=== PATIENT | female | born 2005 | race Caucasian/White ===

== ENCOUNTER 2025-07-21 08:34 | Outpatient (CLI) | payer OTHER ==
[2025-07-21 09:26] LABS: URINE APPEARANCE Clear; URINE BILIRRUBIN Negative (NEGATIVE); URINE BLOOD Negative; URINE COLOR Yellow; URINE GLUCOSE Negative (NEGATIVE); URINE KETONE Negative (NEGATIVE); URINE LEUKOCYTE Negative; URINE NITRATE Negative; URINE PROTEIN Negative (NEGATIVE); URINE UROBILINOGEN 0.2 E.U./dl
[2025-07-21 09:28] LABS: BASO % 0.3 % (0.1-1.2); EOS # 0.19 (0.04-0.54); EOS % 2.8 % (0.7-7.0); LYMPH # 2.66 (1.18-3.74); LYMPH % 39.3 % (19.3-53.1); MEAN PLATELET VOLUME 12.10 fl (9.4-12.4); MONO # 0.59 (0.24-0.82); MONO % 8.7 % (4.7-12.5); NEUT # 3.29 (1.56-6.13); NEUT % 48.8 % (34.0-71.1); RED CELL DISTRIBUTION WIDTH 13.2 % (11.6-14.4)
[2025-07-21 09:31] LABS: ERYTHROCYTE SEDIMENTATION RATE 2 mm/hr (0-20); URINE BACTERIA 811.2 uL (0.0-1933); URINE EPITHELIAL CELLS 15.3 uL (0.0-38.8); URINE WBC 7.2 uL (0.0-23.2)
[2025-07-21 10:27] LABS: URINE CAST 0.00 uL (0.0-1.40); URINE RBC 1.4 uL (0.0-20.8)
[2025-07-21 10:28] LABS: ALT/SGPT 20 U/L (12-78); AST/SGOT 15 U/L (15-37); BILIRUBIN TOTAL 1.40 mg/dL (0.3-1.2); BUN CREA RATIO 13 (7.0-25.0); CREATININE SERUM 0.71 mg/dL (0.55-1.02); GFR 104.95; GLOBULINA 3.2 G/DL (2.4-3.5); GLUCOSE FASTING 92 mg/dL (65-100); OSMOLALITY SERUM 278 MOSM/KG (275-295)
== END 2025-07-21 08:44 | disposition home or self-care (01) ==
LOC: LAB 08:34
PROVIDERS: ATTEND Pediatrics Pediatric Rheumatology
DX: M08.3 Juvenile rheumatoid polyarthritis (seronegative) (principal)